=== PATIENT | female | born 1985 | race Caucasian/White ===

== ENCOUNTER 2017-02-28 13:42 | Emergency (ER) | payer BC ==
[~2017-02-28] VITALS: Ht 170.2 cm; Wt 81.7 kg
[2017-02-28 13:45] VITALS: BP 133/97
[2017-02-28] MEDS ORDERED: HUMALOG100 UNIT/1 SUBQ (13:51)
[2017-02-28] MEDS ORDERED: PRENATAL PO (13:52)
[2017-02-28] MEDS ORDERED: IRON325 PO (13:52)
== END 2017-02-28 14:45 | disposition home or self-care (01) ==
LOC: ER 13:42
DX: S93.402A Sprain of unspecified ligament of left ankle, initial encounter (principal); W19.XXXA Unspecified fall, initial encounter; Y93.01 Activity, walking, marching and hiking; Y92.89 Other specified places as the place of occurrence of the external cause; Y99.8 Other external cause status